=== PATIENT | female | born 1935 | race Caucasian/White ===

== ENCOUNTER 2017-02-07 12:37 | Emergency (ER) | payer MEDICARE, BC ==
[~2017-02-07] VITALS: Ht 152.4 cm; Wt 51.8 kg
[2017-02-07 19:33] VITALS: BP 149/84
== END 2017-02-07 19:35 | disposition home or self-care (01) ==
LOC: ED 14:22
DX: S83.015A Lateral dislocation of left patella, initial encounter (principal); S52.592A Other fractures of lower end of left radius, initial encounter for closed fracture; M17.11 Unilateral primary osteoarthritis, right knee; M19.032 Primary osteoarthritis, left wrist; M65.842 Other synovitis and tenosynovitis, left hand; M25.461 Effusion, right knee; W01.0XXA Fall on same level from slipping, tripping and stumbling without subsequent striking against object, initial encounter; Y93.89 Activity, other specified; Y92.89 Other specified places as the place of occurrence of the external cause; Y99.9 Unspecified external cause status
CPT/HCPCS: 29125; 70450; 72125; 99284

== ENCOUNTER 2017-02-09 12:25 | Inpatient (IN) | payer MEDICARE, BC ==
[~2017-02-09] VITALS: Ht 162.6 cm; Wt 49.0 kg
[2017-02-09] MEDS ORDERED: SODIUM CHLORIDE 0.9% 1,000 ML IV ONE (12:29)
[2017-02-09] MEDS ORDERED: SODIUM CHLORIDE FLUSH 10ML SYR IVF ONE (12:30)
[2017-02-09 12:44] LABS: HEMATOCRIT 40.4 % (34.6-47.8); HEMOGLOBIN 13.2 g/dL (11.7-16.4); WHITE BLOOD COUNT 6.3 x10^3/uL (3.4-10)
[2017-02-09] MEDS ORDERED: HYDR-2440 PO (12:44)
[2017-02-09] MEDS ORDERED: DONE5TAB30 PO (12:44)
[2017-02-09] MEDS ORDERED: TEMA30CA PO (12:44)
[2017-02-09] MEDS ORDERED: LEVO50TA5 PO (12:44)
[2017-02-09] MEDS ORDERED: MELO-184 PO (12:44)
[2017-02-09] MEDS ORDERED: OMEG-14 PO (12:44)
[2017-02-09] MEDS ORDERED: VORT10TA PO (12:44)
[2017-02-09 12:58] LABS: ASPARTATE AMINO TRANSFERASE 14 U/L (15-37); BLOOD UREA NITROGEN 18 mg/dL (7-18)
[2017-02-09 13:11] LABS: IS PT STATUS REG ER OR PRE ER? YES
[2017-02-09] MEDS ORDERED: HYDROcodone/APAP 5/325 TABLET PO ONE ×2 (14:29→15:30)
[2017-02-09] MEDS ORDERED: HYDROcodone/APAP 5/325 TABLET ONE ×2 (14:32→15:08)
[2017-02-09] MEDS ORDERED: ACETAMINOPHEN 325 MG TABLET PO PRN (16:30)
[2017-02-09] MEDS ORDERED: ONDANSETRON 2MG/ML, 2ML IVPush PRN (16:30)
[2017-02-09] MEDS ORDERED: ONDANSETRON ODT 4 MG PO PRN (16:30)
[2017-02-09 17:10] VITALS: BP 140/79
[2017-02-09] MEDS: ENOXAPARIN 40 MG/0.4 ML SQ SCH (18:17)
[2017-02-09] MEDS: SODIUM CHLORIDE 0.9% 1,000 ML IV SCH (18:17)
[2017-02-09 19:00] VITALS: BP 108/71
[2017-02-09] MEDS: TEMAZEPAM 30 MG CAPSULE PO SCH (21:06)
[2017-02-09] MEDS: DONEPEZIL 5 MG TABLET PO SCH (21:06)
[2017-02-09] MEDS: HYDROcodone/APAP 10/325 MG TABLET PO PRN (21:13)
[2017-02-10 00:41] VITALS: BP 132/82
[2017-02-10 05:12] LABS: HEMATOCRIT 34.7 % (34.6-47.8); HEMOGLOBIN 11.4 g/dL (11.7-16.4); WHITE BLOOD COUNT 6.3 x10^3/uL (3.4-10)
[2017-02-10 05:29] LABS: ASPARTATE AMINO TRANSFERASE 15 U/L (15-37); BLOOD UREA NITROGEN 15 mg/dL (7-18)
[2017-02-10 06:39] VITALS: BP 136/86
[2017-02-10] MEDS: SODIUM CHLORIDE 0.9% 1,000 ML IV SCH (06:48)
[2017-02-10] MEDS ORDERED: VORTIOXETINE HYDROBROMIDE 10 MG HOMEMEDPO SCH (09:00)
[2017-02-10] MEDS: MELOXICAM 15 MG TABLET PO SCH (09:55)
[2017-02-10] MEDS: LEVOTHYROXINE 50 MCG TABLET PO SCH (09:57)
[2017-02-10 13:30] VITALS: BP 130/78
[2017-02-10] MEDS: ENOXAPARIN 40 MG/0.4 ML SQ SCH (16:28)
[2017-02-10] MEDS: HYDROcodone/APAP 10/325 MG TABLET PO PRN (16:35)
[2017-02-10 19:25] VITALS: BP 149/79
[2017-02-10] MEDS: DONEPEZIL 5 MG TABLET PO SCH (20:03)
[2017-02-10] MEDS: TEMAZEPAM 30 MG CAPSULE PO SCH (20:03)
[2017-02-10] MEDS: VORTIOXETINE HYDROBROMIDE 10 MG HOMEMEDPO SCH (21:12)
[2017-02-11 00:09] VITALS: BP 141/93
[2017-02-11 07:05] VITALS: BP 167/91
[2017-02-11] MEDS: MELOXICAM 15 MG TABLET PO SCH (10:09)
[2017-02-11] MEDS: LEVOTHYROXINE 50 MCG TABLET PO SCH (10:09)
[2017-02-11] MEDS: HYDROcodone/APAP 10/325 MG TABLET PO PRN (12:10)
[2017-02-11 13:05] VITALS: BP 130/91
[2017-02-11] MEDS: ENOXAPARIN 40 MG/0.4 ML SQ SCH (16:29)
[2017-02-11 18:45] VITALS: BP 177/82
[2017-02-11] MEDS ORDERED: LISINOPRIL 10 MG TABLET PO ONE (19:30)
[2017-02-11] MEDS: TEMAZEPAM 30 MG CAPSULE PO SCH (19:42)
[2017-02-11] MEDS: VORTIOXETINE HYDROBROMIDE 10 MG HOMEMEDPO SCH (19:42)
[2017-02-11 22:56] VITALS: BP 152/99
[2017-02-12] MEDS: HYDROcodone/APAP 10/325 MG TABLET PO PRN ×2 (00:02→09:14)
[2017-02-12 00:50] VITALS: BP 154/72
[2017-02-12 08:00] VITALS: BP 149/86
[2017-02-12] MEDS: MELOXICAM 15 MG TABLET PO SCH (08:06)
[2017-02-12] MEDS: LEVOTHYROXINE 50 MCG TABLET PO SCH (08:06)
[2017-02-12] MEDS ORDERED: HYDR-2440 PO (08:58)
[2017-02-12] MEDS ORDERED: LISI-167 PO (08:58)
[2017-02-12] MEDS ORDERED: CALC-112 PO (08:58)
[2017-02-12] MEDS ORDERED: ONDA4TAB13 PO (08:58)
[2017-02-12] MEDS ORDERED: TEMA30CA PO (08:58)
[2017-02-12] MEDS ORDERED: LISINOPRIL 10 MG TABLET PO SCH (09:00)
[2017-02-12] MEDS ORDERED: HYDR-3240 PO (09:22)
[2017-02-12] MEDS ORDERED: POLY17PO5 PO (09:22)
[2017-02-12] MEDS ORDERED: TRAM50TA2 PO (09:23)
[2017-02-12] MEDS ORDERED: ALEN1TAB2 PO (10:07)
[2017-02-12] MEDS ORDERED: PNEUMOCOCCAL 23 VACCINE IM-VACC ONE (12:00)
[2017-02-12 12:30] VITALS: BP 154/77
== END 2017-02-12 15:18 | DRG 542 ==
LOC: ED 12:41 → EDIP 14:48 → 3NE 16:37
PROVIDERS: ADMIT Family Medicine; ATTEND Family Medicine
DX: M48.54XA Collapsed vertebra, not elsewhere classified, thoracic region, initial encounter for fracture (principal); E43 Unspecified severe protein-calorie malnutrition; E87.1 Hypo-osmolality and hyponatremia; W06.XXXA Fall from bed, initial encounter; M48.56XA Collapsed vertebra, not elsewhere classified, lumbar region, initial encounter for fracture; E03.9 Hypothyroidism, unspecified; E87.6 Hypokalemia; F02.80 Dementia in other diseases classified elsewhere, unspecified severity, without behavioral disturbance, psychotic disturbance, mood disturbance, and anxiety; F32.9 Major depressive disorder, single episode, unspecified; G30.9 Alzheimer's disease, unspecified; G89.29 Other chronic pain; M47.896 Other spondylosis, lumbar region; I10 Essential (primary) hypertension; M19.032 Primary osteoarthritis, left wrist; M43.16 Spondylolisthesis, lumbar region; M47.814 Spondylosis without myelopathy or radiculopathy, thoracic region; M81.0 Age-related osteoporosis without current pathological fracture; R29.6 Repeated falls; Z87.891 Personal history of nicotine dependence; Z96.653 Presence of artificial knee joint, bilateral; Y93.89 Activity, other specified; Y92.89 Other specified places as the place of occurrence of the external cause; Z79.899 Other long term (current) drug therapy; Z98.49 Cataract extraction status, unspecified eye; Z81.8 Family history of other mental and behavioral disorders
CPT/HCPCS: 29125; 36415; 70450; 71010; 72072; 72110; 72125; 80053; 81003; 83036; 83735; 84100; 84443; 84484; 85025; 90732; 93005; 96360; 96361; J1650; J7030

== ENCOUNTER → 2017-03-21 | Outpatient (CLI) | payer MEDICARE, BC ==
[~2017-03-21] MED LIST: ALEN1TAB2 PO; CALC-112 PO; DONE5TAB52 PO; HYDR-2440 PO; HYDR-3240 PO; LEVO50TA5 PO; LISI-167 PO; MELO15TA24 PO; OMEG-14 PO; ONDA4TAB13 PO; POLY17PO5 PO; TEMA30CA PO; TRAM50TA2 PO; VORT10TA PO
== END ==
LOC: RAD 12:04
PROVIDERS: ATTEND Family Medicine
DX: M41.84 Other forms of scoliosis, thoracic region (principal)
CPT/HCPCS: 71020